=== PATIENT | male | born 1965 | race Hispanic/Latino ===

== ENCOUNTER 2017-12-20 22:11 | Emergency (ER) | payer OTHER ==
[~2017-12-20] VITALS: Ht 167.6 cm; Wt 74.8 kg
[2017-12-20] MEDS ORDERED: LEVOFLOXACIN 750MG/D5W 150ML 150 ML IV STA (23:13)
[2017-12-20] MEDS ORDERED: SODIUM CHLORIDE 0.9% 1000ML 1,000 ML IV SCH (23:15)
[2017-12-21 01:08] VITALS: BP 103/67
== END 2017-12-21 01:05 | disposition home or self-care (01) ==
LOC: FSED 22:11
DX: N30.00 Acute cystitis without hematuria (principal); E78.5 Hyperlipidemia, unspecified; F41.9 Anxiety disorder, unspecified
CPT/HCPCS: 80053; 81003; 85025; 87040; 87086; 99283

== ENCOUNTER 2018-11-10 10:32 | Emergency (ER) | payer OTHER ==
[~2018-11-10] VITALS: Ht 167.6 cm; Wt 72.6 kg
--- OUTSIDE RECORDS SUMMARY | 2018-11-10 10:35 | XMS REPORT | Continuity of Care Document ---
Author Author [facility] Interface Address Unknown Phone Unavailable Problems Problem Status Onset Date Classification Date Reported Comments Source R88 - ABNORMAL FINDINGS IN OTHER BOD Active 12/09/[place] Medication Details Route Status Patient Instructions Ordering Provider Order Date Source Allergies, Adverse Reactions, Alerts Substance Category Reaction Severity Reaction type Status Date Reported Comments Source Immunizations Immunization Date Given Site Status Last Updated Comments Source Results Order Name Results Value Reference Range Date Interpretation Comments Source Knee 1-2 Views unilateral DX Knee 1-2 Views unilateral DX RIGHT KNEE X-RAY 2 VIEWS History: 50-year-old male with right knee pain and the medial palm. Comparison: None. Findings: Bones are aligned and there is no fracture or subluxation. Joint spaces are mild narrowed suggesting cartilage loss. There are no osteophytes. A small knee effusion suspected. The bone mineralization is normal. There are no soft tissue calcifications. Impression: No acute bony injury. Joint spaces are mild narrowed suggesting cartilage loss and early osteoarthritis. A small knee effusion suspected. 12/09/2015 - - Read by: Micheal Ramos MD Dictated Date/time: 12/09/15 10:17 Electronically Signed by: Micheal Ramos 12/09/15 10:30 FINAL REPORT [facility] [place] Vital Signs Vital Sign Value Date Comments Source Encounters Location Location Details Encounter Type Encounter Number Reason For Visit Attending Provider ADM Date DC Date Status Source [facility] [place] [facility] [id number] Betty Garibay 12/09/2015 12/10/2015 [facility] [place] Procedures Procedure Code Date Perfomer Comments Source
--- OUTSIDE RECORDS SUMMARY | 2018-11-10 10:35 | XMS REPORT | Summary of Care ---
Author Author [facility] [place] Organization [facility] [place] Address Unknown Phone Unavailable Encounter HQ Encntr_alias(FIN) [id number] Date(s): 12/09/15 - 12/09/15 [facility] [place] [address] [place] [address]- [facility] [phone] Discharge Disposition: Home Attending Physician: Betty Garibay MD Vital Signs No data available for this section Problem List No data available for this section Allergies, Adverse Reactions, Alerts No data available for this section Medications No data available for this section Results No data available for this section Immunizations No data available for this section Procedures No data available for this section Social History No data available for this section Assessment and Plan No data available for this section
--- NOTE | 2018-11-10 11:53 | Diagnostic Imaging Report ---
EXAMINATION: CT of the chest with contrast, PE protocol. TECHNIQUE: Spiral CT images of the chest were performed from the lung apices through the level of the adrenal glands after the IV administration of 95 cc of Isovue-370 Thin section reconstructions were obtained with special concentration on the pulmonary arteries. COMPARISON: <none> CLINICAL HISTORY:Chest pain DISCUSSION: Vasculature: The main pulmonary artery, right and left pulmonary arteries, and their visualized lobar and segmental branches are patent, without filling defect. The pulmonary outflow tract is of normal caliber. There is no ectasia or aneurysmal dilatation of the thoracic aorta. No right ventricular dilatation or septal bowing. Great vessel origins are normal in caliber and configuration. Lungs: Mild perihilar and dependent predominant groundglass opacities and smooth interlobular septal thickening. No airspace consolidation, bronchiectasis, or gross mass lesion. Airways: <The major airways are clear.> Pleura: <There is no evidence of pleural effusion or pneumothorax.> Heart and mediastinum: Visualized portions of the thyroid appear normal. Heart size is normal. No pericardial effusion. No axillary, hilar, or mediastinal lymphadenopathy. Abdomen: Visualized portions of the liver, spleen, pancreas, and adrenal glands are normal. Bones and soft tissues: No osseous destructive lesions. No focal soft tissue abnormalities. IMPRESSION: No pulmonary embolus to the level of the segmental branch pulmonary arteries. Mild interstitial pulmonary edema. Signed by: Dr. Sarkis Mendez M.D. on 11/10/2018 11:50 AM
[2018-11-10] MEDS ORDERED: ASPIRIN 325 MG TAB PO ONE (12:00)
[2018-11-10] MEDS ORDERED: IOPAMIDOL 370 MG/ML 50ML INFUS..BTL INJ ONE (12:15)
[2018-11-10 13:56] VITALS: BP 137/80
== END 2018-11-10 13:59 | disposition home or self-care (01) ==
LOC: FSED 10:32
DX: R07.89 Other chest pain (principal); F41.9 Anxiety disorder, unspecified; E78.5 Hyperlipidemia, unspecified; Z85.46 Personal history of malignant neoplasm of prostate; Z86.73 Personal history of transient ischemic attack (TIA), and cerebral infarction without residual deficits
CPT/HCPCS: 71260; 80053; 84484; 85025; 99284; Q9967